=== PATIENT | female | born 1970 | race Caucasian/White ===

== ENCOUNTER 2023-06-25 23:45 | Emergency (ER) | payer OTHER ==
[~2023-06-25] VITALS: Ht 162.6 cm; Wt 55.8 kg
[2023-06-25 23:47] VITALS: BP 118/79; PULSE 111; RESP 18; TEMP 98.3; O2SAT 99
[2023-06-26 00:11] VITALS: BP 118/79; PULSE 111; RESP 18; TEMP 98.3; O2SAT 99
== END 2023-06-26 00:11 ==
LOC: MED 23:45
DX: Z02.89 Encounter for other administrative examinations (principal); Z79.899 Other long term (current) drug therapy; V49.88XA Car occupant (driver) (passenger) injured in other specified transport accidents, initial encounter; Y93.89 Activity, other specified; Y92.89 Other specified places as the place of occurrence of the external cause; Y99.8 Other external cause status
CPT/HCPCS: 99283